=== PATIENT | male | born 1950 | race Caucasian/White ===

== ENCOUNTER → 2018-11-03 | Outpatient (CLI) | payer MEDICARE, OTHER ==
[~2018-11-03] MED LIST: CIPRO 500MG TA500 MG PO; MYRBETR50MG PO
== END ==
LOC: COL.VAS 12:44
DX: M79.89 Other specified soft tissue disorders (principal); Z98.890 Other specified postprocedural states

== ENCOUNTER 2020-02-09 12:28 | Emergency (ER) | payer MEDICARE, OTHER ==
[~2020-02-09] VITALS: Ht 188 cm; Wt 134.1 kg
[2020-02-09 13:12] VITALS: BP 168/64; PULSE 54; TEMP 97.6
[2020-02-09] MEDS ORDERED: DOXYCYCLINE 10100 MG PO (13:15)
== END 2020-02-09 13:37 | disposition home or self-care (01) ==
LOC: COL.ER 12:28
DX: L60.0 Ingrowing nail (principal); Z88.1 Allergy status to other antibiotic agents